=== PATIENT | male | born 1980 | race Caucasian/White ===

== ENCOUNTER → 2016-05-30 | Outpatient (CLI) | payer OTHER ==
[~2016-05-30] MED LIST: ADVIL,NUPRIN,M200 MG PO; NORCO 5/3251 TABLET PO
== END | disposition home or self-care (01) ==
LOC: CDC 15:42
DX: Z01.810 Encounter for preprocedural cardiovascular examination (principal); K42.9 Umbilical hernia without obstruction or gangrene
CPT/HCPCS: 93000

== ENCOUNTER 2016-06-13 07:08 | Day surgery (SDC) | payer OTHER ==
[~2016-06-13] VITALS: Ht 190.5 cm; Wt 153.3 kg
[~2016-06-13 07:08] MED LIST changes: -NORCO 5/3251 TABLET PO
[2016-06-13 07:34] VITALS: BP 123/84
[2016-06-13] MEDS ORDERED: NORCO 5/3251 TABLET PO (10:26)
[2016-06-13 12:00] VITALS: BP 153/96
[2016-06-13 13:00] VITALS: BP 134/80
[2016-06-13 14:55] VITALS: BP 142/80
== END 2016-06-13 14:50 | disposition home or self-care (01) ==
LOC: SDC
PROC: 0WQF0ZZ Repair Abdominal Wall, Open Approach (ICD-10-PCS; principal; 2016-06-13)
DX: K42.9 Umbilical hernia without obstruction or gangrene (principal); E66.01 Morbid (severe) obesity due to excess calories; Z68.41 Body mass index [BMI] 40.0-44.9, adult
CPT/HCPCS: C1781; J0330; J0690; J1170; J2250; J2405; J3010; S0020